=== PATIENT | male | born 1940 | race Caucasian/White ===

== ENCOUNTER 2018-05-25 07:04 | Day surgery (SDC) | payer MEDICARE ==
[2018-05-20 16:12] VITALS: BMI 33.7
[2018-05-25 07:28] LABS: BASO # 0.08 K/mm3 (0.0-2.0); BASO % 0.8 % (0.0-3.0); EOS % 18.8 % (1.5-5.0); GRAN # 5.8 (1.4-6.5); GRAN % 56.1 % (50.0-68.0); HEMOGLOBIN 12.3 g/dL (14.0-18.0); LYMPH # 1.7 (1.2-3.4); LYMPH % 16.8 % (22.0-35.0); MEAN CELL VOLUME 93.9 fl (80.0-105.0); MEAN CORPUSCULAR HEMOGLOBIN 31.2 pg (25.0-35.0); MEAN CORPUSCULAR HGB CONC 33.2 g/dl (31.0-37.0); MEAN PLATELET VOLUME 10.4 fl (7.0-11.0); MONO # 0.8 (0.1-0.6); MONO % 7.5 % (1.0-6.0); RBC 3.94 10^6/uL (3.5-6.1); RED CELL DISTRIBUTION WIDTH 13.4 % (11.5-14.5); WHITE BLOOD COUNT 10.4 10^3/ul (4.5-11.0)
[2018-05-25 07:37] LABS: INR 1.07; PARTIAL THROMBOPLASTIN TIME 28.4 Seconds (25.1-36.5); PROTHROMBIN TIME 12.3 SECONDS (9.4-12.5)
[2018-05-25 07:49] LABS: BLOOD UREA NITROGEN 17 mg/dL (7-21); GFR NON-AFRICAN AMERICAN > 60
[2018-05-25] MEDS ORDERED: Lidocaine 2% PF (10 ml) Amp ONE (09:28)
[2018-05-25] MEDS ORDERED: Nitroglycerin 50mg in D5W 50 MG/250 ML BOTTLE IV ONE (09:29)
[2018-05-25] MEDS ORDERED: Iodixanol 320 MG/ML 100 ML BOTTLE IV ONE ×3 (09:29→12:17)
[2018-05-25] MEDS ORDERED: Iodixanol 320 MG/ML 200 ML BOTTLE IV ONE (09:29)
[2018-05-25] MEDS ORDERED: Midazolam 2 MG/2 ML VIAL ONE ×3 (10:00→11:33)
[2018-05-25] MEDS ORDERED: Heparin25000 units/250ml 1/2NS 25,000 UNITS/250 ML BAG IV ONE (12:36)
[2018-05-25] MEDS ORDERED: Eptifibatide 20 mg/10mL Inj IVP ONE (12:45)
[2018-05-25] MEDS ORDERED: Oxycodone/Acetaminophen 5/325 mg Tab PO PRN (13:15)
[2018-05-25] MEDS ORDERED: Sodium Chloride 0.45% 1,000 ML IV SCH (13:15)
[2018-05-25] MEDS ORDERED: Heparin25000 units/250ml 1/2NS 25,000 UNITS/250 ML BAG IV PRN (13:19)
--- NOTE | 2018-05-25 20:28 | VASCULAR ---
PROCEDURE: 1. Abdominal aortogram and bilateral lower extremity runoff with left selective views. 2. Long segment left SFA recanalization with drug-eluting balloon angioplasty and stent placement 3. Left popliteal artery atherectomy and drug-eluting balloon angioplasty 4. Left tibioperoneal trunk atherectomy and drug-eluting balloon angioplasty 5. Left profunda femoral artery origin angioplasty 6. Rescue suction thrombectomy left tibioperoneal trunk HISTORY: Severe peripheral vascular disease. Lifestyle limiting left lower extremity claudication with early rest pain. Poor surgical candidate. PHYSICIAN(S): Arturo Patel M.D. TECHNIQUE: The relative risks and indications of the procedure were explained to the patient and his daughter and consent obtained. The patient was hydrated prior to the procedure and the appropriate labs drawn. The patient was placed supine on the arteriogram table and the right groin prepped and draped in the usual sterile fashion. Conscious sedation and monitoring were provided throughout the procedure by a nurse. Via a right common femoral artery approach, a 5 [place] sheath was placed in the right groin. Through the sheath and over a guidewire, a 5 [place] flush catheter was placed in the abdominal aorta at the level of the renal arteries and a PA DSA abdominal aortogram performed. The catheter was pulled down to the aortic bifurcation and bilateral oblique DSA pelvic arteriograms performed. Overlapping bilateral lower extremity DSA arteriograms were obtained from the inguinal ligaments to the ankles. A 0.035 angled Glidewire was advanced over the bifurcation and placed in the left common femoral artery. A 6 [place] 65 cm destination sheath was placed in the left common femoral artery. Rather easily, the chronic left SFA occlusion was crossed with a 0.035 glidewire and trail laser catheter. Distal re-entry was not easily obtained. An out back catheter was utilized. The diseased left popliteal artery and occluded left tibioperoneal trunk were crossed with various 0.018 and 0.014 guidewires. A 0.017 support wire was placed the left peroneal artery. Atherectomy of the terminal left popliteal artery and left tibioperoneal trunk was performed with a 1.8 mm [employer] atherectomy catheter. The left tibioperoneal trunk was dilated with 3.0 and 3.5 mm angioplasty balloons. Eventually a 4 mm drug-eluting balloon was used in the left tibioperoneal trunk. The left popliteal artery was dilated with a 5 mm drug-eluting balloon. The left SFA was dilated with overlapping 5 and 6 mm drug-eluting balloons. The re-entry site at the left adductor canal was dilated with a 7 mm balloon. A 6.5 by 80 mm Supera stent was placed in the distal left SFA and above knee popliteal arteries. The left profunda femoral artery origin was occluded after dilatation of the left SFA. The occlusion was crossed with a 0.014 guidewire. The left profunda femoral artery origin was dilated with a 6 mm balloon. No stent was required. Thrombotic occlusion of the left tibioperoneal trunk was encountered. Suction thrombectomy was performed with a 5 [place] catheter and 6 [place] angled guide catheter. TPA 4 milligrams was given. Antegrade flow was re-established.. Completion angiograms were performed. The sheath was removed and hemostasis obtained with a Perclose device. Patient will be heparinized. Thrombus was noted in the proximal mid left SF A. A 7 mm x 10 cm Viabahn stent graft was placed in the proximal mid left SFA FINDINGS: There are 6 renal arteries in total. No significant renal artery stenosis is seen. The nephrograms are symmetric in appearance. Diffuse disease of the infrarenal abdominal aorta is present. Radiographically significant stenosis is not appreciated. The aortic bifurcation is calcified but patent. The common and external iliac arteries are patent on two views. Pressures were obtained in the left common femoral artery which demonstrated no significant gradient. The internal iliac arteries are patent bilaterally with proximal disease. Right lower extremity: The right common femoral artery is patent. The right profunda femoral artery is patent. The right superficial femoral artery is diffusely diseased with multiple mild to moderate stenoses. There is a severe stenosis in the distal right SFA.. The right popliteal artery is continuous. There is severe right trifurcation and tibial occlusive disease. The right anterior tibial artery is severely diseased proximally there appears to be occlusions of the proximal to mid right peroneal and posterior tibial arteries. Left lower extremity: Left common femoral artery is patent. The left profunda femoral artery is hypertrophied with a moderate to severe stenosis proximally. The left SFA occludes at its origin. There is reconstitution of the terminal left SFA The left popliteal artery is continuous with a tapered appearance distally and severe stenosis. There is severe left trifurcation and tibial occlusive disease. The left tibioperoneal trunk is occluded. There reconstitution of the proximal left posterior tibial and peroneal arteries. The left anterior tibial artery is occluded proximally.. IMPRESSION: 1.Successful long segment left SFA recanalization with drug-eluting balloon angioplasty and focal stent/stent graft placement 2. Left popliteal artery atherectomy and drug-eluting balloon angioplasty. 3. Left tibioperoneal trunk recanalization with atherectomy and drug-eluting balloon angioplasty. 4. Rescue percutaneous thrombectomy of the left tibioperoneal trunk embolus. 5. Left profunda femoral artery origin angioplasty
[2018-05-26 00:10] VITALS: RESP 20
[2018-05-26 02:07] VITALS: PULSE 95
[2018-05-26 05:58] VITALS: BP 163/87; TEMP 98.1; O2SAT 95
[2018-05-26 06:55] LABS: HEMOGLOBIN 10.2 g/dL (14.0-18.0); MEAN CELL VOLUME 92.7 fl (80.0-105.0); MEAN CORPUSCULAR HEMOGLOBIN 30.8 pg (25.0-35.0); MEAN CORPUSCULAR HGB CONC 33.2 g/dl (31.0-37.0); MEAN PLATELET VOLUME 10.4 fl (7.0-11.0); RBC 3.31 10^6/uL (3.5-6.1); RED CELL DISTRIBUTION WIDTH 13.8 % (11.5-14.5); WHITE BLOOD COUNT 11.2 10^3/ul (4.5-11.0)
[2018-05-26 07:02] LABS: INR 1.2; PARTIAL THROMBOPLASTIN TIME 69.8 Seconds (25.1-36.5); PROTHROMBIN TIME 13.8 SECONDS (9.4-12.5)
[2018-05-26 07:13] LABS: BLOOD UREA NITROGEN 19 mg/dL (7-21); GFR NON-AFRICAN AMERICAN > 60
[2018-05-26] MEDS ORDERED: CHLORTHALIDONE PO SCH (10:00)
[2018-05-26] MEDS ORDERED: ATENOLOL PO SCH (10:00)
[2018-05-26] MEDS ORDERED: [UNRECOGNIZED DRUG - OTHER] PO SCH (10:00)
== END 2018-05-26 11:35 | disposition home or self-care (01) ==
LOC: SDSVAS 07:04 → 2RSO 15:44 → SDSVAS 05-26 11:35
PROVIDERS: ATTEND Radiology Vascular & Interventional Radiology
DX: I70.223 Atherosclerosis of native arteries of extremities with rest pain, bilateral legs (principal); I10 Essential (primary) hypertension
CPT/HCPCS: 36415 ×2; 37227; 37229; 75625; 75716; 80048 ×2; 82948 ×2; 85025; 85027; 85610 ×2; 85730 ×2; 99152; 99153; C1725 ×11; C1760; C1769 ×8; C1876 ×2; C1885; C1887 ×5; C1894; J0360; J0690; J1327; J1644 ×3; J1940; J2250; J2405; J2997; J3010; J7030; Q9966; Q9967